=== PATIENT | male | born 1945 | race Two or more races ===

== ENCOUNTER 2024-06-25 19:18 | Inpatient (IN) | payer OTHER, MEDICARE, SELFPAY ==
[2024-06-25 19:43] VITALS: BP 176/88; PULSE 74; RESP 18; TEMP 36.4; O2SAT 98
[2024-06-25 19:47] VITALS: BMI 27.8
[2024-06-25 22:33] VITALS: BP 160/89; PULSE 69
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
[2024-06-26 07:42] LABS: Alanine Aminotransferase 13 U/L (0-40); Albumin Level 3.9 g/dL (3.5-5.0); Alkaline Phosphatase 91 U/L (39-117); Anion Gap 12 (12-20); Aspartate Amino Transferase 27 U/L (5-37); Bilirubin Total 0.6 mg/dL (0.0-1.0); Blood Urea Nitrogen 23 mg/dL (9-16); Calcium 9.3 mg/dL (8.4-10.2); Carbon Dioxide 26 mmol/L (22-29); Chloride 112 mmol/L (96-108); Cholesterol 201 mg/dL (<200); Creatinine Clr Calc Pharmacy 28.4; Estimated Glomerular Filt Rate 32; Glucose Fasting 100 mg/dL (60-99); HDL Cholesterol 45 mg/dL (>40); LDL Cholesterol Calculated 142 mg/dL (<100); Potassium 4.1 mmol/L (3.3-5.1); Sodium 146 mmol/L (135-145); Total Protein 7.1 g/dL (6.5-8.0); Triglycerides 73 mg/dL (<150)
[2024-06-26] MEDS: Brexpiprazole 2 MG TABLET PO (07:45)
[2024-06-26] MEDS: diazePAM 5 MG TABLET 10 MG PO ×2 (07:45→20:51)
[2024-06-26 07:53] VITALS: BP 157/77; PULSE 75; RESP 18; TEMP 35.9; O2SAT 97
--- NOTE | 2024-06-26 12:25 | PC.NURSE ---
Otto's blood pressure 150s systolic and reported he hasn't seen a PCP in over two years. He denied headache/blurry vision. Dr. Tovar notified.
[2024-06-26] MEDS: Vilazodone HCL 10 MG TABLET PO (17:17)
[2024-06-26 20:00] VITALS: BP 174/92; PULSE 76; RESP 18; TEMP 36.7; O2SAT 97
[2024-06-27 08:19] VITALS: BP 145/76; PULSE 79; RESP 20; TEMP 36.5; O2SAT 96
[2024-06-27] MEDS: Brexpiprazole 2 MG TABLET PO (08:21)
[2024-06-27] MEDS: diazePAM 5 MG TABLET 10 MG PO ×2 (08:22→20:36)
--- NOTE | 2024-06-27 15:36 | HO.PSYCHPN ---
Subjective Subjective Date of Service: 06/27/24 Reason For Visit: Depression Subjective Notes: Section 12B Interim History: The nursing staff reported the patient had been pleasant, cooperative, future oriented attending to all the groups. Yesterday he slept well last night. On interview the patient adamantly denies suicidal ideation he feels better. He agreed increase Viibryd up to 20 mg p.o. daily to target depression. Mental Status Exam Mental Status Exam Patient Appearance: Appropriate Patient Orientation: Person and Situation Level of Consciousness: Awake and Appropriate Patient Behavior: Guarded and Passive Mood Description: Withdrawn Affect Description: Constricted Patient Cognition Impaired: Yes Ability to Follow Directions: Good Speech Pattern: Clear Hallucinations: None Delusions: Not Present Thought Process: Distracted Thought Content: positive for [place] and positive for Poverty of Content Judgement: Fair Diagnostics Vital Signs (24Hr): Vital Signs - 24 hr 06/26/24 20:00 06/27/24 08:19 Temperature 98.1 F 97.7 F Pulse Rate 76 79 Respiratory Rate 18 20 Blood Pressure 174/92 H 145/76 H Pulse Oximetry 97 96 Oxygen Delivery Method Room Air Room Air BMI result Body Mass Index 27.8 Labs 06/26/24 07:17 Labs: Laboratory Results - last 48 hr 06/26/24 07:17 Sodium 146 H Potassium 4.1 Chloride 112 H Carbon Dioxide 26 Anion Gap 12 BUN 23 H Creatinine 2.00 H Estim Creat Clear Calc 28.4 Estimated GFR 32 Fasting Glucose 100 H Calcium 9.3 Total Bilirubin 0.6 AST 27 ALT 13 Alkaline Phosphatase 91 Total Protein 7.1 Albumin 3.9 Triglycerides 73 Cholesterol 201 H LDL Cholesterol, Calc 142 H HDL Cholesterol 45 Medications Medications Current Medications Acetaminophen (Acetaminophen 325 Mg Tablet) 650 mg PO Q6H PRN PRN Reason: Headache/Pain Mild Scale (1-3) Al Hydroxide/Mg Hydroxide (Magnesium Hydrox/Alum Hydrox 30 Ml Oral.Susp) 30 ml PO Q6H PRN PRN Reason: Heartburn/Nausea Brexpiprazole (Brexpiprazole 2 Mg Tablet) 2 mg PO DAILY [facility] Last Admin: 06/27/24 08:21 Dose: 2 mg Diazepam (Diazepam 5 Mg Tablet) 10 mg PO BID [facility] Last Admin: 06/27/24 08:22 Dose: 10 mg Hydroxyzine HCl (Hydroxyzine Hcl 25 Mg Tablet) 25 mg PO Q6H PRN PRN Reason: Anxiety Magnesium Hydroxide (Milk Of Magnesia 30 Ml Oral.Susp) 30 ml PO DAILY PRN PRN Reason: Constipation Trazodone HCl (Trazodone Hcl 50 Mg Tablet) 50 mg PO BEDTIME MRX1 PRN PRN Reason: Insomnia Vilazodone HCl (Vilazodone Hcl 10 Mg Tablet) 10 mg PO DAILY@1700 [facility] Last Admin: 06/26/24 17:17 Dose: 10 mg Allergies Allergies Allergy/AdvReac Type Severity Reaction Status Date / Time No Known Allergies Allergy Verified 06/25/24 19:43 Assessment & Plan Assessment & Plan (1) Major depressive disorder: Status: Acute Code(s): F32.9 - Major depressive disorder, single episode, unspecified Plan The patient is a 78-year-old [place] male, descended, with a 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 Since then he had been having unstable follow-up. He was brought into the facility by himself to the emergency room of [facility] after he worsened his symptoms for the last 3 months. Plan 1. Gather collateral information. 2. Since the patient is able to contract for safety 15 minute checks. 3. Continue with Rexulti and Viibryd as prescribed. 4. Continue with benzodiazepines as prescribed. 5. Reassessment with results 6. Increase Viibryd up to 20 mg p.o. daily on June 27 Reason for continued inpatient stay Substantial Risk for: inability to function, rapid decompensation and med/psych decompensation Time Spent With Patient Time: Total time managing care of this patient today __20__ minutes.
[2024-06-27] MEDS: Vilazodone HCL 20 MG TABLET PO (17:42)
[2024-06-27 20:00] VITALS: BP 174/84; PULSE 77; RESP 18; TEMP 36.6; O2SAT 98
[2024-06-28 08:00] VITALS: BP 142/81; PULSE 80; RESP 18; TEMP 36.8; O2SAT 97
[2024-06-28] MEDS: Brexpiprazole 2 MG TABLET PO (08:20)
[2024-06-28] MEDS: diazePAM 5 MG TABLET 10 MG PO ×2 (08:20→20:41)
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
--- NOTE | 2024-06-28 12:35 | HO.PSYCHPN ---
Subjective Subjective Date of Service: 06/28/24 Reason For Visit: Depression Subjective Notes: Conditional Voluntary Interim History: The nursing staff reported that hte patient has been pleasant, cooperative, fully compliant iw medications. He adamantly denies current suicidal thoughts. OT will asses his cognition today. On interview he reports wiling to continue treatment, he signed a CV. Mental Status Exam Mental Status Exam Patient Appearance: Well Grooomed and Appropriate Patient Orientation: Person and Situation Level of Consciousness: Awake Patient Behavior: Appropriate and Cooperative Mood Description: Withdrawn Affect Description: Constricted Patient Cognition Impaired: Yes Ability to Follow Directions: Good Speech Pattern: Clear Hallucinations: None Delusions: Not Present Thought Process: Linear Thought Content: positive for Circumstantial Judgement: Fair Diagnostics Vital Signs (24Hr): Vital Signs - 24 hr 06/27/24 20:00 06/28/24 08:00 Temperature 97.8 F 98.2 F Pulse Rate 77 80 Respiratory Rate 18 18 Blood Pressure 174/84 H 142/81 H Pulse Oximetry 98 97 Oxygen Delivery Method Room Air Room Air BMI result Body Mass Index 27.8 Labs 06/26/24 07:17 Medications Medications Current Medications Acetaminophen (Acetaminophen 325 Mg Tablet) 650 mg PO Q6H PRN PRN Reason: Headache/Pain Mild Scale (1-3) Al Hydroxide/Mg Hydroxide (Magnesium Hydrox/Alum Hydrox 30 Ml Oral.Susp) 30 ml PO Q6H PRN PRN Reason: Heartburn/Nausea Brexpiprazole (Brexpiprazole 2 Mg Tablet) 2 mg PO DAILY [facility] Last Admin: 06/28/24 08:20 Dose: 2 mg Diazepam (Diazepam 5 Mg Tablet) 10 mg PO BID [facility] Last Admin: 06/28/24 08:20 Dose: 10 mg Hydroxyzine HCl (Hydroxyzine Hcl 25 Mg Tablet) 25 mg PO Q6H PRN PRN Reason: Anxiety Magnesium Hydroxide (Milk Of Magnesia 30 Ml Oral.Susp) 30 ml PO DAILY PRN PRN Reason: Constipation Trazodone HCl (Trazodone Hcl 50 Mg Tablet) 50 mg PO BEDTIME MRX1 PRN PRN Reason: Insomnia Vilazodone HCl (Vilazodone Hcl 20 Mg Tablet) 20 mg PO DAILY@1700 [facility] Last Admin: 06/27/24 17:42 Dose: 20 mg Allergies Allergies Allergy/AdvReac Type Severity Reaction Status Date / Time No Known Allergies Allergy Verified 06/25/24 19:43 Assessment & Plan Assessment & Plan (1) Major depressive disorder: Status: Acute Code(s): F32.9 - Major depressive disorder, single episode, unspecified Plan The patient is a 78-year-old Irish male, descended, with a 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 Since then he had been having unstable follow-up. He was brought into the facility by himself to the emergency room of [facility] after he worsened his symptoms for the last 3 months. Plan 1. Gather collateral information. 2. Since the patient is able to contract for safety 15 minute checks. 3. Continue with Rexulti and Viibryd as prescribed. 4. Continue with benzodiazepines as prescribed. 5. Reassessment with results 6. Increase Viibryd up to 20 mg p.o. daily on June 27 Reason for continued inpatient stay Substantial Risk for: inability to function, rapid decompensation and med/psych decompensation Time Spent With Patient Time: Total time managing care of this patient today _20___ minutes.
[2024-06-28 14:32] VITALS: BP 158/88
[2024-06-28] MEDS: amLODIPine Besylate 5 MG TABLET PO (14:32)
[2024-06-28] MEDS: Vilazodone HCL 20 MG TABLET PO (16:48)
[2024-06-28 20:00] VITALS: BP 144/81; PULSE 77; RESP 18; TEMP 36.3; O2SAT 98
[2024-06-29 08:13] VITALS: BP 153/78; PULSE 73; RESP 17; TEMP 36.2; O2SAT 97
[2024-06-29] MEDS: Brexpiprazole 2 MG TABLET PO (08:20)
[2024-06-29] MEDS: amLODIPine Besylate 5 MG TABLET PO (08:21)
[2024-06-29] MEDS: diazePAM 5 MG TABLET 10 MG PO ×2 (08:21→20:41)
--- NOTE | 2024-06-29 12:31 | P.PNPSI_ITS ---
Subjective Subjective Date of Service: 06/29/24 Reason For Visit: Depression Subjective Notes: Conditional Voluntary Interim History: The nursing staff reported the patient had been pleasant cooperative, fully compliant with treatment. We discussed today with Otto about his cognitive impairment and was in agreement of start Aricept at night. OT reported that he scored 11/30 on the Chase and 4.4 that shows advanced dementia. Even though, he is able to be safe in the community. He should not be driving and he was advised about that. Mental Status Exam Mental Status Exam Patient Appearance: Appropriate Patient Orientation: Person and Situation Level of Consciousness: Awake and Appropriate Patient Behavior: Passive Mood Description: Calm Affect Description: Constricted Patient Cognition Impaired: Yes Ability to Follow Directions: Good Speech Pattern: Clear Hallucinations: None Delusions: Not Present Thought Process: Distracted and Slowed Thinking Thought Content: positive for [place] and positive for Poverty of Content Judgement: Fair Diagnostics Vital Signs (24Hr): Vital Signs - 24 hr 06/28/24 14:32 06/28/24 20:00 06/29/24 08:13 Temperature 97.4 F 97.2 F Pulse Rate 77 73 Respiratory Rate 18 17 Blood Pressure 158/88 H 144/81 H 153/78 H Pulse Oximetry 98 97 Oxygen Delivery Method Room Air Room Air BMI result Body Mass Index 27.8 Labs 06/26/24 07:17 Medications Medications Current Medications Acetaminophen (Acetaminophen 325 Mg Tablet) 650 mg PO Q6H PRN PRN Reason: Headache/Pain Mild Scale (1-3) Al Hydroxide/Mg Hydroxide (Magnesium Hydrox/Alum Hydrox 30 Ml Oral.Susp) 30 ml PO Q6H PRN PRN Reason: Heartburn/Nausea Amlodipine Besylate (Amlodipine Besylate 5 Mg Tablet) 5 mg PO DAILY [facility]; Protocol Last Admin: 06/29/24 08:21 Dose: 5 mg Brexpiprazole (Brexpiprazole 2 Mg Tablet) 2 mg PO DAILY [facility] Last Admin: 06/29/24 08:20 Dose: 2 mg Diazepam (Diazepam 5 Mg Tablet) 10 mg PO BID [facility] Last Admin: 06/29/24 08:21 Dose: 10 mg Donepezil HCl (Donepezil Hcl 5 Mg Tablet) 5 mg PO BEDTIME [facility] Hydroxyzine HCl (Hydroxyzine Hcl 25 Mg Tablet) 25 mg PO Q6H PRN PRN Reason: Anxiety Magnesium Hydroxide (Milk Of Magnesia 30 Ml Oral.Susp) 30 ml PO DAILY PRN PRN Reason: Constipation Trazodone HCl (Trazodone Hcl 50 Mg Tablet) 50 mg PO BEDTIME MRX1 PRN PRN Reason: Insomnia Vilazodone HCl (Vilazodone Hcl 20 Mg Tablet) 20 mg PO DAILY@1700 [facility] Last Admin: 06/28/24 16:48 Dose: 20 mg Allergies Allergies Allergy/AdvReac Type Severity Reaction Status Date / Time No Known Allergies Allergy Verified 06/25/24 19:43 Assessment & Plan Assessment & Plan (1) Major depressive disorder: Status: Acute Code(s): F32.9 - Major depressive disorder, single episode, unspecified Plan The patient is a 78-year-old [place] male, descended, with a 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 Since then he had been having unstable follow-up. He was brought into the facility by himself to the emergency room of [facility] after he worsened his symptoms for the last 3 months. Plan 1. Gather collateral information. 2. Since the patient is able to contract for safety 15 minute checks. 3. Continue with Rexulti and Viibryd as prescribed. 4. Continue with benzodiazepines as prescribed. 5. Reassessment with results 6. Increase Viibryd up to 20 mg p.o. daily on June 27. 7. He scored on the Chase test 11/30 and 4.4 on the [place] test. We are going to start Aricept 5 mg p.o. q.h.s. to target dementia Reason for continued inpatient stay Substantial Risk for: inability to function, rapid decompensation and med/psych decompensation Time Spent With Patient Time: Total time managing care of this patient today __20__ minutes.
[2024-06-29] MEDS: Vilazodone HCL 20 MG TABLET PO (16:37)
[2024-06-29 20:00] VITALS: BP 130/74; PULSE 64; RESP 18; TEMP 36.3; O2SAT 99
[2024-06-29] MEDS: Donepezil HCl 5 MG TABLET PO (20:41)
[2024-06-30 08:20] VITALS: BP 137/89; PULSE 74; RESP 17; TEMP 36.2; O2SAT 95
[2024-06-30] MEDS: amLODIPine Besylate 5 MG TABLET PO (08:23)
[2024-06-30] MEDS: diazePAM 5 MG TABLET 10 MG PO ×2 (08:23→20:43)
[2024-06-30] MEDS: Brexpiprazole 2 MG TABLET PO (08:23)
[2024-06-30 09:08] VITALS: BMI 28.7
--- NOTE | 2024-06-30 11:14 | P.PNPSI_ITS ---
Subjective Subjective Date of Service: 06/30/24 Reason For Visit: Depression Subjective Notes: Conditional Voluntary Interim History: The nursing staff reported the patient had been pleasant cooperative fully compliant with treatment. The staff has noticed the patient tends to groups and he is future oriented. On interview the patient denies active use depressive symptoms he feels better and he wants so discharged as soon as possible. We are arranging his aftercare. Mental Status Exam Mental Status Exam Patient Appearance: Well Grooomed and Appropriate Patient Orientation: Person and Situation Level of Consciousness: Awake and Appropriate Patient Behavior: Guarded and Passive Mood Description: Withdrawn Affect Description: Calm and Constricted Patient Cognition Impaired: Yes Ability to Follow Directions: Good Speech Pattern: Clear Hallucinations: None Delusions: Not Present Thought Process: Distracted and Slowed Thinking Thought Content: positive for [place] and positive for Poverty of Content Judgement: Fair Diagnostics Vital Signs (24Hr): Vital Signs - 24 hr 06/29/24 20:00 06/30/24 08:20 Temperature 97.3 F 97.1 F Pulse Rate 64 74 Respiratory Rate 18 17 Blood Pressure 130/74 137/89 Pulse Oximetry 99 95 Oxygen Delivery Method Room Air Room Air BMI result Body Mass Index 28.7 Labs 06/26/24 07:17 Medications Medications Current Medications Acetaminophen (Acetaminophen 325 Mg Tablet) 650 mg PO Q6H PRN PRN Reason: Headache/Pain Mild Scale (1-3) Al Hydroxide/Mg Hydroxide (Magnesium Hydrox/Alum Hydrox 30 Ml Oral.Susp) 30 ml PO Q6H PRN PRN Reason: Heartburn/Nausea Amlodipine Besylate (Amlodipine Besylate 5 Mg Tablet) 5 mg PO DAILY [facility]; Protocol Last Admin: 06/30/24 08:23 Dose: 5 mg Brexpiprazole (Brexpiprazole 2 Mg Tablet) 2 mg PO DAILY KATE Last Admin: 06/30/24 08:23 Dose: 2 mg Diazepam (Diazepam 5 Mg Tablet) 10 mg PO BID KATE Last Admin: 06/30/24 08:23 Dose: 10 mg Donepezil HCl (Donepezil Hcl 5 Mg Tablet) 5 mg PO BEDTIME [facility] Last Admin: 06/29/24 20:41 Dose: 5 mg Hydroxyzine HCl (Hydroxyzine Hcl 25 Mg Tablet) 25 mg PO Q6H PRN PRN Reason: Anxiety Magnesium Hydroxide (Milk Of Magnesia 30 Ml Oral.Susp) 30 ml PO DAILY PRN PRN Reason: Constipation Trazodone HCl (Trazodone Hcl 50 Mg Tablet) 50 mg PO BEDTIME MRX1 PRN PRN Reason: Insomnia Vilazodone HCl (Vilazodone Hcl 20 Mg Tablet) 20 mg PO DAILY@1700 KATE Last Admin: 06/29/24 16:37 Dose: 20 mg Allergies Allergies Allergy/AdvReac Type Severity Reaction Status Date / Time No Known Allergies Allergy Verified 06/25/24 19:43 Assessment & Plan Assessment & Plan (1) Major depressive disorder: Status: Acute Code(s): F32.9 - Major depressive disorder, single episode, unspecified Plan The patient is a 78-year-old [place]ian male, descended, with a 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 Since then he had been having unstable follow-up. He was brought into the facility by himself to the emergency room of [facility] after he worsened his symptoms for the last 3 months. Plan 1. Gather collateral information. 2. Since the patient is able to contract for safety 15 minute checks. 3. Continue with Rexulti and Viibryd as prescribed. 4. Continue with benzodiazepines as prescribed. 5. Reassessment with results 6. Increase Viibryd up to 20 mg p.o. daily on June 27. 7. He scored on the [place] test 09/17 and 4.4 on the [place] test. We are going to start Aricept 5 mg p.o. q.h.s. to target dementia Reason for continued inpatient stay Substantial Risk for: inability to function, rapid decompensation and med/psych decompensation Time Spent With Patient Time: Total time managing care of this patient today __20__ minutes.
[2024-06-30] MEDS: Vilazodone HCL 20 MG TABLET PO (16:49)
[2024-06-30 20:00] VITALS: BP 157/86; PULSE 73; RESP 18; TEMP 36.1; O2SAT 96
[2024-06-30] MEDS: Donepezil HCl 5 MG TABLET PO (20:43)
[2024-07-01 08:02] VITALS: BP 132/82; PULSE 66; RESP 18; TEMP 36.4; O2SAT 98
[2024-07-01] MEDS: Brexpiprazole 2 MG TABLET PO (08:04)
[2024-07-01] MEDS: amLODIPine Besylate 5 MG TABLET PO (08:04)
[2024-07-01] MEDS: diazePAM 5 MG TABLET 10 MG PO ×2 (08:04→20:21)
--- NOTE | 2024-07-01 09:52 | HO.PSYCHPN ---
Subjective Subjective Date of Service: 07/01/24 Reason For Visit: Depression Interim History: Pt reports feeling well. Feeling prepared for discharge. Reports appropriate sleep, appetite. Denies SI, HI, AH, VH. No symptoms of hilary or psychosis. Pt is focused on driving today. States he is 100% certain he can drive without a problem and requests we clear him for this. Pleasant, visable in milieu, social, watching television programming with interest. Medication Compliance: Yes Side effects from medications: No Attending Groups: Intermittent Review of Systems Acute medical concerns: No Medical Review of Systems: unchanged Review of Systems Review of Systems Yes all other systems are reviewed and are negative (denies) Mental Status Exam Mental Status Exam Patient Appearance: Well Grooomed and Appropriate Patient Orientation: Person and Situation Level of Consciousness: Awake and Appropriate Patient Behavior: Guarded and Passive Mood Description: Withdrawn Affect Description: Calm and Constricted Patient Cognition Impaired: Yes Ability to Follow Directions: Good Speech Pattern: Clear Hallucinations: None Delusions: Not Present Thought Process: Distracted and Slowed Thinking Thought Content: positive for [place] and positive for Poverty of Content Judgement: Fair Diagnostics Vital Signs (24Hr): Vital Signs - 24 hr 06/30/24 20:00 07/01/24 08:02 Temperature 96.9 F 97.5 F Pulse Rate 73 66 Respiratory Rate 18 18 Blood Pressure 157/86 H 132/82 Pulse Oximetry 96 98 Oxygen Delivery Method Room Air Room Air BMI result Body Mass Index 28.7 Labs 06/26/24 07:17 Medications Medications Current Medications Acetaminophen (Acetaminophen 325 Mg Tablet) 650 mg PO Q6H PRN PRN Reason: Headache/Pain Mild Scale (1-3) Al Hydroxide/Mg Hydroxide (Magnesium Hydrox/Alum Hydrox 30 Ml Oral.Susp) 30 ml PO Q6H PRN PRN Reason: Heartburn/Nausea Amlodipine Besylate (Amlodipine Besylate 5 Mg Tablet) 5 mg PO DAILY [facility]; Protocol Last Admin: 07/01/24 08:04 Dose: 5 mg Brexpiprazole (Brexpiprazole 2 Mg Tablet) 2 mg PO DAILY KATE Last Admin: 07/01/24 08:04 Dose: 2 mg Diazepam (Diazepam 5 Mg Tablet) 10 mg PO BID KATE Last Admin: 07/01/24 08:04 Dose: 10 mg Donepezil HCl (Donepezil Hcl 5 Mg Tablet) 5 mg PO BEDTIME KATE Last Admin: 06/30/24 20:43 Dose: 5 mg Hydroxyzine HCl (Hydroxyzine Hcl 25 Mg Tablet) 25 mg PO Q6H PRN PRN Reason: Anxiety Magnesium Hydroxide (Milk Of Magnesia 30 Ml Oral.Susp) 30 ml PO DAILY PRN PRN Reason: Constipation Trazodone HCl (Trazodone Hcl 50 Mg Tablet) 50 mg PO BEDTIME MRX1 PRN PRN Reason: Insomnia Vilazodone HCl (Vilazodone Hcl 20 Mg Tablet) 20 mg PO DAILY@1700 KATE Last Admin: 06/30/24 16:49 Dose: 20 mg Allergies Allergies Allergy/AdvReac Type Severity Reaction Status Date / Time No Known Allergies Allergy Verified 06/25/24 19:43 Assessment & Plan Assessment & Plan (1) Major depressive disorder: Status: Acute Code(s): F32.9 - Major depressive disorder, single episode, unspecified Plan The patient is a 78-year-old [place]ican male, descended, with a 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 Since then he had been having unstable follow-up. He was brought into the facility by himself to the emergency room of [facility] after he worsened his symptoms for the last 3 months. Plan 1. Gather collateral information. 2. Since the patient is able to contract for safety 15 minute checks. 3. Continue with Rexulti and Viibryd as prescribed. 4. Continue with benzodiazepines as prescribed. 5. Reassessment with results 6. Increase Viibryd up to 20 mg p.o. daily on June 27. 7. He scored on the [place] test 09/17 and 4.4 on the [place] test. We are going to start Aricept 5 mg p.o. q.h.s. to target dementia 07/01/24: Continue tx. Reason for continued inpatient stay Substantial Risk for: rapid decompensation Time Spent With Patient Time: Total time managing care of this patient today ____ minutes.
[2024-07-01] MEDS: Vilazodone HCL 20 MG TABLET PO (16:56)
[2024-07-01 20:00] VITALS: BP 170/86; PULSE 63; RESP 16; TEMP 36.4; O2SAT 98
[2024-07-01] MEDS: Donepezil HCl 5 MG TABLET PO (20:21)
[2024-07-01] MEDS: traZODone HCL 50 MG TABLET PO (20:21)
[2024-07-02 08:05] VITALS: BP 158/80; PULSE 72; RESP 17; TEMP 36.3; O2SAT 98
[2024-07-02] MEDS: diazePAM 5 MG TABLET 10 MG PO ×2 (08:21→20:15)
[2024-07-02] MEDS: Brexpiprazole 2 MG TABLET PO (08:21)
[2024-07-02] MEDS: amLODIPine Besylate 5 MG TABLET PO (08:21)
--- NOTE | 2024-07-02 09:27 | HO.PSYCHPN ---
Subjective Subjective Date of Service: 07/02/24 Reason For Visit: Depression Subjective Notes: Conditional Voluntary Interim History: Pt slept through the night. He reports concern in terms of high BP, his reading have been with SBP 150's. Increase amlodipine to 7.5mg po daily. He is visible on the unit, attends assigned groups. No behavioral concerns. No SI/HI. No behavioral concerns. Review of Systems Review of Systems General: No fevers, malaise, unintentional weight loss HEENT: No blurred vision, diplopia. No sore throat, nasal congestion, rhinorrhea, sinus pain, ear pain Cardiovascular: No chest pain, palpitations, or leg edema Respiratory: No shortness of breath, wheezing, cough GI: No abdominal pain, nausea, vomiting, diarrhea, constipation, melena, hematochezia : No dysuria, hematuria, increased urinary frequency, decreased urinary output MSK: No myalgia, back pain Neuro: No headaches, weakness, paresthesias Skin: No rashes or lesions Yes all other systems are reviewed and are negative (denies) Mental Status Exam Mental Status Exam Patient Appearance: Well Grooomed and Appropriate Patient Orientation: Person and Situation Level of Consciousness: Awake and Appropriate Patient Behavior: Guarded and Passive Mood Description: Withdrawn Affect Description: Calm and Constricted Patient Cognition Impaired: Yes Ability to Follow Directions: Good Speech Pattern: Clear Diagnostics Vital Signs (24Hr): Vital Signs - 24 hr 07/01/24 20:00 07/02/24 08:05 Temperature 97.5 F 97.3 F Pulse Rate 63 72 Respiratory Rate 16 17 Blood Pressure 170/86 H 158/80 H Pulse Oximetry 98 98 Oxygen Delivery Method Room Air Room Air BMI result Body Mass Index 28.7 Labs 06/26/24 07:17 Medications Medications Current Medications Acetaminophen (Acetaminophen 325 Mg Tablet) 650 mg PO Q6H PRN PRN Reason: Headache/Pain Mild Scale (1-3) Al Hydroxide/Mg Hydroxide (Magnesium Hydrox/Alum Hydrox 30 Ml Oral.Susp) 30 ml PO Q6H PRN PRN Reason: Heartburn/Nausea Amlodipine Besylate (Amlodipine Besylate 5 Mg Tablet) 5 mg PO DAILY KATE; Protocol Last Admin: 07/02/24 08:21 Dose: 5 mg Brexpiprazole (Brexpiprazole 2 Mg Tablet) 2 mg PO DAILY KATE Last Admin: 07/02/24 08:21 Dose: 2 mg Diazepam (Diazepam 5 Mg Tablet) 10 mg PO BID [facility] Last Admin: 07/02/24 08:21 Dose: 10 mg Donepezil HCl (Donepezil Hcl 5 Mg Tablet) 5 mg PO BEDTIME [facility] Last Admin: 07/01/24 20:21 Dose: 5 mg Hydroxyzine HCl (Hydroxyzine Hcl 25 Mg Tablet) 25 mg PO Q6H PRN PRN Reason: Anxiety Magnesium Hydroxide (Milk Of Magnesia 30 Ml Oral.Susp) 30 ml PO DAILY PRN PRN Reason: Constipation Trazodone HCl (Trazodone Hcl 50 Mg Tablet) 50 mg PO BEDTIME MRX1 PRN PRN Reason: Insomnia Last Admin: 07/01/24 20:21 Dose: 50 mg Vilazodone HCl (Vilazodone Hcl 20 Mg Tablet) 20 mg PO DAILY@1700 [facility] Last Admin: 07/01/24 16:56 Dose: 20 mg Allergies Allergies Allergy/AdvReac Type Severity Reaction Status Date / Time No Known Allergies Allergy Verified 06/25/24 19:43 Assessment & Plan Assessment & Plan (1) Major depressive disorder: Status: Acute Code(s): F32.9 - Major depressive disorder, single episode, unspecified Plan The patient is a 78-year-old Singaporean male, descended, with a 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 Since then he had been having unstable follow-up. He was brought into the facility by himself to the emergency room of [facility] after he worsened his symptoms for the last 3 months. Plan 1. Gather collateral information. 2. Since the patient is able to contract for safety 15 minute checks. 3. Continue with Rexulti and Viibryd as prescribed. 4. Continue with benzodiazepines as prescribed. 5. Reassessment with results 6. Increase Viibryd up to 20 mg p.o. daily on June 27. 7. He scored on the [place] test 09/17 and 4.4 on the [place] test. We are going to start Aricept 5 mg p.o. q.h.s. to target dementia 07/01/24: Continue tx. 914- increase amlodipine to 7.5mg po qhs. Reason for continued inpatient stay Substantial Risk for: inability to function Time Spent With Patient Time: Total time managing care of this patient today ____ minutes.
[2024-07-02] MEDS: Vilazodone HCL 20 MG TABLET PO (16:47)
[2024-07-02 20:00] VITALS: BP 178/88; PULSE 74; RESP 16; TEMP 36.5; O2SAT 96
[2024-07-02] MEDS: Donepezil HCl 5 MG TABLET PO (20:15)
[2024-07-03 08:12] VITALS: BP 158/93; PULSE 78; RESP 17; TEMP 36.4; O2SAT 99
[2024-07-03] MEDS: diazePAM 5 MG TABLET 10 MG PO ×2 (08:13→20:20)
[2024-07-03] MEDS: amLODIPine Besylate 5 MG TABLET PO (08:13)
[2024-07-03] MEDS: Brexpiprazole 2 MG TABLET PO (08:13)
--- NOTE | 2024-07-03 11:16 | HO.PSYCHPN ---
Subjective Subjective Date of Service: 07/03/24 Reason For Visit: Depression Subjective Notes: Conditional Voluntary Interim History: Pt slept through the night. He is looking for discharged tomorrow. He is visible on the unit, attends assigned groups. No behavioral concerns. No SI/HI. No behavioral concerns. Review of Systems Review of Systems General: No fevers, malaise, unintentional weight loss HEENT: No blurred vision, diplopia. No sore throat, nasal congestion, rhinorrhea, sinus pain, ear pain Cardiovascular: No chest pain, palpitations, or leg edema Respiratory: No shortness of breath, wheezing, cough GI: No abdominal pain, nausea, vomiting, diarrhea, constipation, melena, hematochezia : No dysuria, hematuria, increased urinary frequency, decreased urinary output MSK: No myalgia, back pain Neuro: No headaches, weakness, paresthesias Skin: No rashes or lesions Yes all other systems are reviewed and are negative (denies) Mental Status Exam Mental Status Exam Patient Appearance: Well Grooomed and Appropriate Patient Orientation: Person and Situation Level of Consciousness: Awake and Appropriate Patient Behavior: Guarded and Passive Mood Description: Withdrawn Affect Description: Calm and Constricted Patient Cognition Impaired: Yes Ability to Follow Directions: Good Speech Pattern: Clear Diagnostics Vital Signs (24Hr): Vital Signs - 24 hr 07/02/24 20:00 07/03/24 08:12 Temperature 97.7 F 97.5 F Pulse Rate 74 78 Respiratory Rate 16 17 Blood Pressure 178/88 H 158/93 H Pulse Oximetry 96 99 Oxygen Delivery Method Room Air Room Air BMI result Body Mass Index 28.7 Labs 06/26/24 07:17 Medications Medications Current Medications Acetaminophen (Acetaminophen 325 Mg Tablet) 650 mg PO Q6H PRN PRN Reason: Headache/Pain Mild Scale (1-3) Al Hydroxide/Mg Hydroxide (Magnesium Hydrox/Alum Hydrox 30 Ml Oral.Susp) 30 ml PO Q6H PRN PRN Reason: Heartburn/Nausea Amlodipine Besylate (Amlodipine Besylate 2.5 Mg Tablet) 7.5 mg PO DAILY [facility]; Protocol Brexpiprazole (Brexpiprazole 2 Mg Tablet) 2 mg PO DAILY [facility] Last Admin: 07/03/24 08:13 Dose: 2 mg Diazepam (Diazepam 5 Mg Tablet) 10 mg PO BID [facility] Last Admin: 07/03/24 08:13 Dose: 10 mg Donepezil HCl (Donepezil Hcl 5 Mg Tablet) 5 mg PO BEDTIME [facility] Last Admin: 07/02/24 20:15 Dose: 5 mg Hydroxyzine HCl (Hydroxyzine Hcl 25 Mg Tablet) 25 mg PO Q6H PRN PRN Reason: Anxiety Magnesium Hydroxide (Milk Of Magnesia 30 Ml Oral.Susp) 30 ml PO DAILY PRN PRN Reason: Constipation Trazodone HCl (Trazodone Hcl 50 Mg Tablet) 50 mg PO BEDTIME MRX1 PRN PRN Reason: Insomnia Last Admin: 07/01/24 20:21 Dose: 50 mg Vilazodone HCl (Vilazodone Hcl 20 Mg Tablet) 20 mg PO DAILY@1700 [facility] Last Admin: 07/02/24 16:47 Dose: 20 mg Allergies Allergies Allergy/AdvReac Type Severity Reaction Status Date / Time No Known Allergies Allergy Verified 06/25/24 19:43 Assessment & Plan Assessment & Plan (1) Major depressive disorder: Status: Acute Code(s): F32.9 - Major depressive disorder, single episode, unspecified Plan The patient is a 78-year-old Salvadorean male, descended, with a 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 Since then he had been having unstable follow-up. He was brought into the facility by himself to the emergency room of [facility] after he worsened his symptoms for the last 3 months. Plan 1. Gather collateral information. 2. Since the patient is able to contract for safety 15 minute checks. 3. Continue with Rexulti and Viibryd as prescribed. 4. Continue with benzodiazepines as prescribed. 5. Reassessment with results 6. Increase Viibryd up to 20 mg p.o. daily on June 27. 7. He scored on the [place] test 09/17 and 4.4 on the [place] test. We are going to start Aricept 5 mg p.o. q.h.s. to target dementia 07/01/24: Continue tx. 07/02- increase amlodipine to 7.5mg po daily. 07/03 continue tx. dc tomorrow. Reason for continued inpatient stay Substantial Risk for: inability to function Time Spent With Patient Time: Total time managing care of this patient today ____ minutes.
[2024-07-03] MEDS: Vilazodone HCL 20 MG TABLET PO (16:40)
[2024-07-03 20:00] VITALS: BP 156/91; PULSE 74; RESP 16; TEMP 36.3; O2SAT 97
[2024-07-03] MEDS: Donepezil HCl 5 MG TABLET PO (20:20)
[2024-07-04 07:58] VITALS: BP 133/85; PULSE 78; RESP 15; TEMP 36.7; O2SAT 96
[2024-07-04] MEDS: Brexpiprazole 2 MG TABLET PO (08:00)
[2024-07-04] MEDS: amLODIPine Besylate 2.5 MG TABLET 7.5 MG PO (08:00)
[2024-07-04] MEDS: diazePAM 5 MG TABLET 10 MG PO (08:00)
--- NOTE | 2024-07-04 08:10 | P.DS_ITS ---
DS: Providers Provider Date of Service: 07/04/24 Date of admission: 06/25/24 19:18 Date of discharge: 07/04/24 Primary care physician: Nikko Tucker MD Consults: 06/28/24 11:17 Consult to Hospitalist Routine Comment: Consulting Provider: Hospitalist Reason For Exam: direct admission Attending physician on discharge: Brandt Tovar DS: Diagnosis Discharge Diagnosis (1) Major depressive disorder: Status: Acute DS: Medications Discharge Medications Home Medications: Home Medications ?Medication ?Instructions ?Recorded ?Confirmed brexpiprazole 2 mg tablet (Rexulti) 2 mg PO QAM 06/25/24 06/25/24 clorazepate dipotassium 15 mg 15 mg PO BID 06/25/24 06/25/24 tablet vilazodone 10 mg tablet (Viibryd) 10 mg PO DAILY@1700 06/25/24 06/25/24 Previous Rx's ?Medication ?Instructions ?Recorded amlodipine 2.5 mg tablet 7.5 mg PO DAILY 30 days #90 tabs 07/04/24 brexpiprazole 2 mg tablet (Rexulti) 2 mg PO DAILY 30 days #30 tabs 07/04/24 clorazepate dipotassium 15 mg 10 mg (0.6667 x 15 mg) PO BID 30 07/04/24 tablet days #40 tabs donepezil 5 mg tablet 5 mg PO BEDTIME 30 days #30 tabs 07/04/24 vilazodone 20 mg tablet (Viibryd) 20 mg PO DAILY@1700 30 days #30 07/04/24 tabs Mental Status Exam Mental Status Exam Patient Appearance: Well Grooomed and Appropriate Patient Orientation: Person and Situation Level of Consciousness: Awake and Appropriate Patient Behavior: Appropriate and Cooperative Mood Description: Calm Affect Description: Constricted Patient Cognition Impaired: Yes Ability to Follow Directions: Good Speech Pattern: Clear Hallucinations: None Delusions: Not Present Thought Process: Goal Oriented Thought Content: positive for [place] and positive for Circumstantial Judgement: Fair DS: Summary Hospital Course Hospital Course: The patient is a 78-year-old Ugandan male, descent, single, with no children, with some social support with a past history of major depressive disorder that got worse after work accident several years ago, never admitted into the hospital for psychiatric reasons. The patient self presented to the emergency room complaining of exacerbation with depression with suicidal and homicidal thoughts. Was assessed by crisis and transferring to this facility for psychiatric stabilization. Please see the HPI of the admission note for further details. On admission, the patient reported that he was feeling better and he advocated f or a faster discharge. We review his medications and he agreed to increase his antidepressant. Unfortunately he psychiatrist 3 years ago and he had not been following any psychiatric treatment. The patient was seen in the unit pleasant, cooperative, participating in groups and future oriented. We did cognitive testing and it was clear that the patient scored very low on the [place]. We discussed options and he agreed to start Aricept 5 mg p.o. q.h.s. to target dementia. Also the DMV was informed. The patient is fully aware that he needs to be retested for safe driving. Since there were no safety concerns at the moment of the discharge and the patient improved discharge planning was discussed, with aftercare in the community. Time spent discussing smoking cessation with patient: 3 to 10 minutes Status at Discharge Cognitive/behavioral status at discharge: Impaired at baseline Functional status at discharge: independent ambulation Overall status at discharge: patient is back to baseline Time Spent with Patient Time attestation: Total time managing care of this patient today ___30_ minutes. 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 Dementia Referrals: [facility]/ Prerna Brady NP [Other] - 07/18/24 1:30 pm (Your first appointment for psychiatry is scheduled for 07/18/24 at 1:30PM. This appointmnet with be by phone with Prerna Brady NP. You have been put on waitlist for therapy and when a provider is available the office will call you. ) [facility] [Other] - 1 Month (Referral was made for homemaking and home delivered meals. Someone from elder services will reach out to you by phone to schedule home visit. ) Nikko Tucker MD [Primary Care Provider] - 1 Week Discharge Medications: New donepezil 5 mg Tablet 5 mg PO BEDTIME 30 Days Qty: 30 0RF amlodipine 2.5 mg Tablet 7.5 mg PO DAILY 30 Days Qty: 90 0RF Protocol: Hold for SBP< HOLD for SBP < : 90 clorazepate dipotassium 15 mg Tablet 10 mg PO BID 30 Days Qty: 40 0RF vilazodone [Viibryd] 20 mg Tablet 20 mg PO DAILY@1700 30 Days Qty: 30 0RF Rexulti 2 mg Tablet 2 mg PO DAILY 30 Days Qty: 30 0RF Discontinued Rexulti 2 mg Tablet 2 mg PO QAM clorazepate dipotassium 15 mg Tablet 15 mg PO BID vilazodone [Viibryd] 10 mg Tablet 10 mg PO DAILY@1700 Rx Instructions: must administer with a meal/food Discharge Orders: Discharge Order (Routine); Ordered 07/04/24 Ordered By: Brandt Tovar Diet: Advance to usual diet Activity on Discharge: As tolerated Stand Alone Forms: Patient Portal Discharge page Print Language: Lao Care Plan Goals: Care plan goals achieved in this admission Health Concerns: Continue treatment with primary care physician as an outpatient Plan of Treatment: Continue psychiatric treatment as an outpatient. Assessment: Elderly descent male with a past history of major depressive disorder who was admitted into the hospital for exacerbation of depression with suicidal ideation. We review his medications increased his antidepressant with no side effects and good tolerability. Also the patient was diagnosed with dementia and he is going to follow outpatient services. At this moment no safety concerns ready to be discharged to the community.
== END 2024-07-04 11:55 | disposition home or self-care (01) | DRG 881 ==
PROVIDERS: Psychiatry & Neurology Psychiatry; Admitting Provider Psychiatry & Neurology Psychiatry; PCP Internal Medicine; Visit Provider Psychiatry & Neurology Psychiatry
DX: F32.9 Major depressive disorder, single episode, unspecified (principal); F03.90 Unspecified dementia, unspecified severity, without behavioral disturbance, psychotic disturbance, mood disturbance, and anxiety; I10 Essential (primary) hypertension; Z79.899 Other long term (current) drug therapy
CPT/HCPCS: 36415; 80053; 80061

== ENCOUNTER → 2024-06-25 19:18 | Outpatient (BNV) | payer MEDICARE, SELFPAY | PROVIDERS: Admitting Provider Psychiatry & Neurology Psychiatry; PCP Internal Medicine; Visit Provider Physician Assistant | DX: I10 Essential (primary) hypertension (principal) | CPT/HCPCS: 99221 ==

== ENCOUNTER → 2024-06-25 19:18 | Outpatient (BNV) | payer OTHER, SELFPAY | PROVIDERS: Admitting Provider Psychiatry & Neurology Psychiatry; PCP Internal Medicine; Visit Provider Psychiatry & Neurology Psychiatry | DX: F32.2 Major depressive disorder, single episode, severe without psychotic features (principal) | CPT/HCPCS: 90792; 99231; 99232; 99238 ==